=== PATIENT | male | born 1985 | race Caucasian/White ===

== ENCOUNTER 2018-08-03 03:03 | Emergency (ER) | payer OTHER, MEDICAID ==
[~2018-08-03] VITALS: Ht 172.7 cm; Wt 81.6 kg
[2018-08-03 03:10] VITALS: BP_SYST 142
--- NOTE | 2018-08-03 03:10 | NUR ---
Patient to ER bed 05 to gown for evaluation. Side rails up.
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
--- NOTE | 2018-08-03 03:11 | NUR ---
SASHA Mack at bedside for medical evaluation.
[2018-08-03 03:33] VITALS: BP_SYST 142
--- NOTE | 2018-08-03 03:33 | NUR ---
Patient given written and verbal discharge instructions and verbalizes understanding. ER MD discussed with patient the results and treatment provided. Patient in stable condition. ID arm band removed. No Rx given. Patient educated on pain management and to follow up with PMD. Pain Scale 0/10. Opportunity for questions provided and answered.
== END 2018-08-03 03:33 ==
LOC: SED 03:03
DX: S60.221A Contusion of right hand, initial encounter (principal); W26.8XXA Contact with other sharp object(s), not elsewhere classified, initial encounter; Y93.89 Activity, other specified; Y92.89 Other specified places as the place of occurrence of the external cause; Y99.8 Other external cause status
CPT/HCPCS: 99283

== ENCOUNTER 2019-08-08 09:55 | Emergency (ER) | payer MEDICAID, OTHER ==
[~2019-08-08] VITALS: Ht 172.7 cm; Wt 83.9 kg
[2019-08-08 09:59] VITALS: BP_SYST 117
[2019-08-08] MEDS ORDERED: NACL 0.9% 1,000 ML IV ONE (10:15)
[2019-08-08] MEDS ORDERED: ONDANSETRON HCL 4 MG/2 ML VIAL IVP ONE (10:15)
[2019-08-08] MEDS ORDERED: MECLIZINE HCL 25 MG TABLET (ANITVERT) PO ONE (10:15)
[2019-08-08] MEDS ORDERED: LORazepam 2 MG/ML VIAL IVP ONE (11:30)
[2019-08-08 12:05] VITALS: BP_SYST 117
== END 2019-08-08 12:05 ==
LOC: SED 09:55
DX: R42 Dizziness and giddiness (principal); R11.2 Nausea with vomiting, unspecified; F10.20 Alcohol dependence, uncomplicated; F12.90 Cannabis use, unspecified, uncomplicated
CPT/HCPCS: 96361; 96374; 96375; 99284; J2060; J2405; J7030; J8597

== ENCOUNTER 2019-12-13 18:46 | Emergency (ER) | payer MEDICAID ==
[~2019-12-13] VITALS: Ht 172.7 cm; Wt 81.6 kg
[2019-12-13 18:49] VITALS: BP_SYST 144
== END 2019-12-13 18:54 ==
LOC: SED 18:46
DX: H81.10 Benign paroxysmal vertigo, unspecified ear (principal)
CPT/HCPCS: 99283

== ENCOUNTER 2019-12-21 20:53 | Emergency (ER) | payer MEDICAID ==
[~2019-12-21] VITALS: Ht 172.7 cm; Wt 90.7 kg
== END 2019-12-21 21:48 ==
LOC: SED 20:53
DX: M79.602 Pain in left arm (principal)
CPT/HCPCS: 99283

== ENCOUNTER 2019-12-22 07:46 | Emergency (ER) | payer MEDICAID ==
[~2019-12-22] VITALS: Ht 172.7 cm; Wt 81.6 kg
[2019-12-22 07:46] VITALS: BP_SYST 150
[2019-12-22] MEDS ORDERED: IBUPROFEN 800 MG TABLET PO ONE (08:15)
[2019-12-22] MEDS ORDERED: DIPH-TET-PERTUS Vaccine 0.5 ML VIAL (ADACEL) I.M. ONE (08:15)
[2019-12-22 08:44] VITALS: BP_SYST 150
== END 2019-12-22 08:39 ==
LOC: SED 07:46
DX: S42.302A Unspecified fracture of shaft of humerus, left arm, initial encounter for closed fracture (principal); S00.81XA Abrasion of other part of head, initial encounter; R03.0 Elevated blood-pressure reading, without diagnosis of hypertension; F17.200 Nicotine dependence, unspecified, uncomplicated; Y08.89XA Assault by other specified means, initial encounter; Y93.89 Activity, other specified; Y92.89 Other specified places as the place of occurrence of the external cause; Y99.8 Other external cause status
CPT/HCPCS: 73030; 90715; 99283

== ENCOUNTER 2020-07-04 14:24 | Emergency (ER) | payer MEDICAID ==
[~2020-07-04] VITALS: Ht 172.7 cm; Wt 86.2 kg
[2020-07-04 14:24] VITALS: BP_SYST 148
--- NOTE | 2020-07-04 14:24 | NUR ---
BROUGHT IN BY JEANNA FAITH AND PLACED IN BED #4, TRIAGED, WILL ASSUME CARE.
--- NOTE | 2020-07-04 14:25 | NUR ---
JEANNA FAITH BROUGHT IN PT FOR OK TO BOOK, PT STATES NO PAIN, DENIES ANY INJURIES
--- NOTE | 2020-07-04 14:30 | NUR ---
ER at bedside examining patient.
[2020-07-04 15:07] VITALS: BP_SYST 148
--- NOTE | 2020-07-04 15:08 | NUR ---
Patient given written and verbal discharge instructions and verbalizes understanding. ER MD discussed with patient the results and treatment provided. Patient in stable condition. ID arm band removed. Patient educated on pain management and to follow up with PMD. Pain Scale 3. Opportunity for questions provided and answered. Medication side effect fact sheet provided.
== END 2020-07-04 15:08 ==
LOC: SED 14:24
DX: Z02.83 Encounter for blood-alcohol and blood-drug test (principal)
CPT/HCPCS: 99283

== ENCOUNTER 2022-03-20 15:27 | Emergency (ER) | payer MEDICAID ==
[~2022-03-20] VITALS: Ht 177.8 cm; Wt 90.7 kg
--- NOTE | 2022-03-20 15:27 | NUR ---
Patient to ER bed HALL1 to gown for evaluation. Side rails up. Report given to AARON CONNER.
--- NOTE | 2022-03-20 15:28 | NUR ---
ER MD DR. HUYNH AT BEDSIDE EXAMINING PATIENT.
[2022-03-20 15:29] VITALS: BP_SYST 156
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
[2022-03-20] MEDS ORDERED: LORazepam 1 MG TABLET PO ONE (15:45)
[2022-03-20 15:50] VITALS: BP_SYST 156
--- NOTE | 2022-03-20 16:01 | NUR ---
Patient given written and verbal discharge instructions and verbalizes understanding. ER DR. LINO JENKINS discussed with patient the results and treatment provided. Patient in stable condition. ID arm band removed. Opportunity for questions provided and answered. Medication side effect fact sheet provided.
== END 2022-03-20 16:01 ==
LOC: SED 15:27
DX: Z02.89 Encounter for other administrative examinations (principal); F10.239 Alcohol dependence with withdrawal, unspecified; Y90.6 Blood alcohol level of 120-199 mg/100 ml; Z79.899 Other long term (current) drug therapy
CPT/HCPCS: 99283

== ENCOUNTER 2023-06-10 10:25 | Emergency (ER) | payer MEDICAID ==
[~2023-06-10] VITALS: Ht 172.7 cm; Wt 81.6 kg
[2023-06-10 10:25] VITALS: BP_SYST 138; PULSE 81; RESP 18; TEMP 98.1; O2SAT 98
[2023-06-10] MEDS: ACETAMINOPHEN 500 MG TABLET PO ONE (11:37)
[2023-06-10 12:50] VITALS: BP_SYST 138; PULSE 81; RESP 18; TEMP 98.1; O2SAT 98
== END 2023-06-10 12:47 ==
LOC: SED 10:25
DX: S22.32XA Fracture of one rib, left side, initial encounter for closed fracture (principal); F10.20 Alcohol dependence, uncomplicated; Y04.0XXA Assault by unarmed brawl or fight, initial encounter; Y93.89 Activity, other specified; Y92.89 Other specified places as the place of occurrence of the external cause; Y99.8 Other external cause status; Y90.9 Presence of alcohol in blood, level not specified
CPT/HCPCS: 71100; 99283